=== PATIENT | male | born 1955 | race Caucasian/White ===

== ENCOUNTER 2022-11-20 09:27 | Outpatient (CLI) | payer MEDICARE, SELFPAY ==
[2022-11-20 12:45] LABS: Alanine Aminotransferase 62 U/L (6-50); Albumin Level 4.7 g/dL (3.5-5.1); Alkaline Phosphatase 80 U/L (38-126); Anion Gap 8 mmol/L (8-16); Aspartate Amino Transferase 40 U/L (17-59); Bilirubin,Total 1.1 mg/dL (0.2-1.3); Blood Urea Nitrogen 12 mg/dL (9-20); Calcium 8.8 mg/dL (8.4-10.2); Carbon Dioxide 29 mmol/L (22-30); Chloride 101 mmol/L (98-107); Cholesterol 205 mg/dL (0-200); Estimated Glomerular Filt Rate > 60; Glucose 116 mg/dL (65-110); HDL Direct 31 mg/dL; Potassium 4.4 mmol/L (3.4-5.0); Sodium 138 mmol/L (137-145); Triglycerides 375 mg/dL (<150)
[2022-11-20 13:05] LABS: LDL Cholesterol Direct 104 mg/dL
[2022-11-20 14:07] LABS: Hemoglobin A1C 5.8 % (<5.7)
[2022-11-21 14:45] LABS: Prostate Specific Antigen 0.6 ng/mL (< OR = 4.0)
== END 2022-11-20 09:28 | disposition home or self-care (01) ==
LOC: ANHGOSHLAB 09:33
PROVIDERS: PCP Family Medicine; Visit Provider Family Medicine
DX: E78.5 Hyperlipidemia, unspecified (principal); I10 Essential (primary) hypertension; Z12.5 Encounter for screening for malignant neoplasm of prostate; E11.9 Type 2 diabetes mellitus without complications
CPT/HCPCS: 36415; 80053; 80061; 83036; 84153; G0103

== ENCOUNTER → 2022-11-30 11:22 | Outpatient (CLI) | payer MEDICARE, SELFPAY ==
--- NOTE | ~2022-11-30 | US_ITS ---
EXAMINATION: US venous doppler [facility] DATE: 11/30/2022 11:55 INDICATION: Left lower limb edema. Other specified soft tissue disorders. TECHNIQUE: Grayscale ultrasound images without and with compression and Doppler ultrasound images of the left lower extremity veins were obtained. COMPARISON: None. FINDINGS: The visualized portions of left common femoral vein, profunda (deep) femoral vein, femoral vein, popl iteal vein, peroneal veins, posterior tibial veins, and greater saphenous vein outflow are patent. IMPRESSION: 1. No deep venous thrombosis. Reviewed, dictated and finalized at location A.
== END ==
PROVIDERS: PCP Family Medicine; Visit Provider Family Medicine
DX: M79.89 Other specified soft tissue disorders (principal)
CPT/HCPCS: 93971

== ENCOUNTER 2023-06-05 21:12 | Outpatient (NON) | payer MEDICARE, SELFPAY ==
[2023-06-05 22:04] LABS: Appearance Urine Cloudy (Clear); Bacteria Urine None Seen /hpf; Bilirubin Urine Negative (Negative); Blood Urine Negative (Negative); Color Urine Yellow (Yellow); Glucose Urine UA Negative (Negative); Ketones Urine Negative (Negative); Leukocyte Esterase Ur Negative LEU/UL (NEGATIVE); Nitrate Urine Negative (Negative); Non Pathogenic Casts 0-2; Protein Urine Negative (Negative); RBC Urine 0-2 /hpf (0-2); Specific Grav Ur 1.014 (1.001-1.035); Squamous Epithelial Cell Urine None seen /hpf (Few); WBC Urine 0-5 /hpf (0-3)
[2023-06-05 22:05] LABS: Add Urine Microscopic? YES
== END 2023-06-05 21:13 | disposition home or self-care (01) ==
LOC: ANHGOSHLAB 21:14
PROVIDERS: PCP Family Medicine; Visit Provider Family Medicine
DX: R31.9 Hematuria, unspecified (principal)
CPT/HCPCS: 81001

== ENCOUNTER 2023-12-06 08:50 | Outpatient (CLI) | payer MEDICARE, SELFPAY ==
[2023-12-06 13:52] LABS: Hemoglobin A1C 5.8 % (<5.7)
[2023-12-06 14:03] LABS: Alanine Aminotransferase 41 U/L (6-50); Albumin Level 5.1 g/dL (3.5-5.1); Alkaline Phosphatase 72 U/L (38-126); Anion Gap 9 mmol/L (4-12); Aspartate Amino Transferase 67 U/L (17-59); Bilirubin,Total 0.9 mg/dL (0.2-1.3); Blood Urea Nitrogen 15 mg/dL (9-20); Calcium 9.7 mg/dL (8.4-10.2); Carbon Dioxide 27 mmol/L (22-30); Chloride 103 mmol/L (98-107); Cholesterol 172 mg/dL (0-200); Estimated Glomerular Filt Rate > 60; Glucose 120 mg/dL (65-110); HDL Direct 48 mg/dL; Potassium 4.3 mmol/L (3.4-5.0); Sodium 139 mmol/L (137-145); Triglycerides 128 mg/dL (<150)
[2023-12-06 14:15] LABS: LDL Cholesterol Direct 101 mg/dL
[2023-12-06 14:31] LABS: Prostate Specific Antigen 0.6 ng/mL (< OR = 4.0)
== END 2023-12-06 08:51 | disposition home or self-care (01) ==
LOC: ANHGOSHLAB 08:52
PROVIDERS: PCP Family Medicine; Visit Provider Family Medicine
DX: R73.03 Prediabetes (principal); Z13.220 Encounter for screening for lipoid disorders; Z12.5 Encounter for screening for malignant neoplasm of prostate; Z13.228 Encounter for screening for other metabolic disorders; I10 Essential (primary) hypertension
CPT/HCPCS: 36415; 80053; 80061; 83036; 84153; G0103

== ENCOUNTER 2023-12-26 10:28 | Outpatient (CLI) | payer MEDICARE, SELFPAY ==
--- NOTE | ~2023-12-26 | US_ITS ---
EXAMINATION: US aorta [facility] DATE: 12/26/2023 11:46 INDICATION: Abdominal aortic aneurysm screening. Encounter for screening for cardiovascular disorders . TECHNIQUE: Grayscale, color Doppler, and pulsed Doppler images of the aorta and common iliac arteries were obtained. COMPARISON: None. FINDINGS: The aorta demonstrates a 3.1 cm proximal fusiform aneurysm. The right common iliac artery is normal i n caliber. The left common iliac artery is normal in caliber. IMPRESSION: 1. 3.1 cm fusiform aneurysm of the proximal abdominal aorta. Reviewed, dictated and finalized at location A.
--- NOTE | 2023-12-26 11:37 | ECG_ITS ---
SEE SCANNED COPY FOR CONFIRMED REPORT MTDD
== END 2023-12-26 10:29 | disposition home or self-care (01) ==
LOC: ANHIMG 10:30
PROVIDERS: PCP Family Medicine; Visit Provider Family Medicine
DX: Z13.6 Encounter for screening for cardiovascular disorders (principal); Z00.00 Encounter for general adult medical examination without abnormal findings; I71.40 Abdominal aortic aneurysm, without rupture, unspecified
CPT/HCPCS: 76706; 93005

== ENCOUNTER 2024-12-04 08:37 | Outpatient (CLI) | payer MEDICARE, SELFPAY ==
--- OUTSIDE RECORDS SUMMARY | 2024-12-04 08:52 | XMS_ITS | Clinical Summary ---
Author Organization [facility] [address] [place] [address] Care Team Providers Care Last Trimmer Name Role Phone No, Physician Primary Care Provider [phone] Allergies No known active allergies Medications lisinopriL (PRINIVIL,ZESTRI L) 10 mg tablet Take 10 mg by mouth daily 02/15/2022 Active simvastatin (ZOCOR) 20 mg tablet Take 20 mg by mouth daily 02/14/2022 Active Active Problems Problem Noted Date Diagnosed Date Sensorineural hearing loss (SNHL) of both ears 0 04/12/2022 Assessment & Plan (04/12/2022 10:36 AM CDT): I reviewed his hearing test with him and his . Does have high-frequency hearing loss. I told him that this is probably due to noise exposure. 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 I discussed hearing loss and management of that. If he is having a lot of trouble communicating with people he certainly could consider hearing aids. Impacted cerumen of right ear 04/12/2022 Assessment & Plan (04/12/2022 10:36 AM CDT): I think this is probably contributing to his hearing loss somewhat. His ears are clear now. He thinks he is hearing little better on the right. There is no need for further intervention. Medical History Medical History Date Comments Allergic rhinitis Ear problems HL (hearing loss) Tinnitus Social History Tobacco Use Types Packs/Day Years Used Date Smoking Tobacco: Never Smokeless Tobacco: Never Personal Safety Answer Date Recorded Getting School Help Needed Not on file 10/20 Sex and Gender Information Value Date Recorded Sex Assigned at Not on file Legal Sex Male 9:03 AM CDT Gender Identity Not on file Sexual Orientation Not on file Obstetrics History Last Filed Vital Signs Vital Sign Reading Time Taken Comments Blood Pressure - - Pulse - - Temperature - - Respiratory Rate 18 04/12/2022 10:11 AM CDT Oxygen Saturation - - Inhaled Oxygen Concentration - - Weight 104.3 kg (230 lb) 04/12/2022 10:11 AM CDT Height 182.9 cm (6') 04/12/2022 10:11 AM CDT Body Mass Index 31.19 04/12/2022 10:11 AM CDT Plan of Treatment Health Maintenance Due Date Last Done Comments Colon Cancer Screening-Colonoscopy 1955 Depression Screening 1957 Fall Risk Assessment 1955 Hepatitis C Screening 1955 Prostate Cancer Screening-PSA 1955 Hepatitis B Screening 10/24/1975 Pneumococcal vaccine 65+ (1 of 1 - PCV) 10/24/2007 Abdominal Aortic Aneurysm (A AA) Screen 2022 Well Visit 65+ 2022 Covid-19 Vaccine ( season) 2024, 10/28/2020 Influenza Vaccine (#1) 2024 , 05/13/2020, 06/30/2014 DTaP/Tdap/Td Vaccine (2 - Td or Tdap) 02/15/2026 Zoster Vaccine Completed 09/11/2021, 04/05/2021 Insurance [facility] Care Teams Last Trimmer Relationship Specialty Start Date End Date No, Physician PCP - General 03/31/22
--- OUTSIDE RECORDS SUMMARY | 2024-12-04 08:52 | XMS_ITS | Referral Summary ---
Author Organization [facility] [address] [place] [address] Care Team Providers Care Statistical Methods Teacher Name Role Phone No, Physician Primary Care Provider [phone] Allergies No known active allergies Medications lisinopriL [...] There is no need for further intervention. Social History Tobacco Use Types Packs/Day Years Used Date Smoking Tobacco: Never Smokeless Tobacco: Never Personal Safety Answer Date Recorded Getting School Help Needed Not on file 10/20 Sex and Gender Information Value Date Recorded Sex Assigned at Not on file Legal Sex Male 9:03 AM CDT Gender Identity Not on file Sexual Orientation Not on file Last Filed Vital Signs Vital Sign Reading [...] 04/12/2022 10:11 AM CDT Plan of Treatment Not on file Insurance [facility] Care Teams Statistical Methods Teacher Relationship Specialty Start Date End Date No, Physician PCP - General 03/31/22
[2024-12-04 12:57] LABS: Basophils Percent Auto 0.4 % (0.2-1.2); Eosinophils Absolute Auto 0.1 K/mm3 (0-0.3); Eosinophils Percent Auto 1.4 % (0-4.4); Hemoglobin 14.6 g/dL (14.0-18.0); Immature Granulocyte Absolute 0.01 K/mm3 (0.00-0.031); Immature Granulocyte Percent A 0.2 % (0-0.5); Lymphocytes Absolute Auto 2.14 K/mm3 (0.9-3.2); Lymphocytes Percent Auto 44.1 % (18.3-44.2); Mean Corpuscular HGB Conc 33.2 g/dl (32-36); Mean Corpuscular Volume 93.4 fl (80-100); Mean Platelet Volume 9.4 fl (7.4-10.4); Monocytes Absolute Auto 0.5 K/mm3 (0.1-0.6); Monocytes Percent Auto 10.3 % (2.6-8.5); Neutrophils Absolute Auto 2.1 K/mm3 (1.3-6.7); Neutrophils Percent Auto 43.6 % (45.5-73.1); Platelet Count Result 243 k/mm3 (150-375); Red Blood Count 4.71 M/mm3 (4.6-6.20); Red Cell Distribution Width 12.6 % (11.5-14.5); White Blood Count 4.9 K/mm3 (4.5-10.0)
[2024-12-04 13:05] LABS: Alanine Aminotransferase 43 U/L (6-50); Albumin Level 4.7 g/dL (3.5-5.1); Alkaline Phosphatase 72 U/L (38-126); Anion Gap 9 mmol/L (4-12); Aspartate Amino Transferase 44 U/L (17-59); Blood Urea Nitrogen 16 mg/dL (9-20); Calcium 9.1 mg/dL (8.4-10.2); Carbon Dioxide 27 mmol/L (22-30); Chloride 103 mmol/L (98-107); Cholesterol 171 mg/dL (0-200); Estimated Glomerular Filt Rate > 60; Glucose 106 mg/dL (65-110); HDL Direct 38 mg/dL; Potassium 4.6 mmol/L (3.4-5.0); Sodium 139 mmol/L (137-145); Triglycerides 210 mg/dL (<150)
[2024-12-04 13:15] LABS: LDL Cholesterol Direct 88 mg/dL
[2024-12-04 13:30] LABS: Hemoglobin A1C 5.8 % (<5.7)
[2024-12-04 13:35] LABS: Prostate Specific Antigen 0.7 ng/mL (< OR = 4.0)
[2024-12-09 19:18] LABS: Apolipoprotein B 95 mg/dL
== END 2024-12-04 08:38 | disposition home or self-care (01) ==
LOC: ANHGOSHLAB 08:38
PROVIDERS: PCP Internal Medicine; Visit Provider Internal Medicine
DX: E78.2 Mixed hyperlipidemia (principal); R73.03 Prediabetes; Z12.5 Encounter for screening for malignant neoplasm of prostate; I10 Essential (primary) hypertension
CPT/HCPCS: 36415; 80053; 80061; 82172; 83036; 84153; 85025; G0103

== ENCOUNTER 2025-07-03 08:11 | Outpatient (CLI) | payer MEDICARE, SELFPAY ==
--- NOTE | ~2025-07-03 | US_ITS ---
PROCEDURE(S): US aorta INDICATION(S): Follow-up COMPARISON(S): 2023 TECHNIQUE: Grayscale, color Doppler, and spectral analysis. FINDINGS: The proximal aorta cannot be seen because of overlying bowel gas. This was the area of previously visualized small aneurysm. The portions of the aorta seen, the mid and distal aorta, show no aneurysm. There is no aneurysm in the common iliac arteries. IMPRESSION: The proximal aorta is not seen because of overlying bowel gas. Consider CT if further evaluation is clinically necessary. Reviewed, dictated and finalized at location A. ERHOUSE MECHANIC IMPRESSION: The proximal aorta is not seen because of overlying bowel gas. Cons ider CT if further evaluation is clinically necessary.
--- OUTSIDE RECORDS SUMMARY | 2025-07-03 08:18 | XMS_ITS | Clinical Summary ---
Author Organization [facility] [address] Address [address] [place] [address] Care Team Providers Care Insole Stiffener Name Role Phone No, Physician Primary Care Provider [phone] Allergies No known active allergies Medications lisinopriL [...] Plan of Treatment Not on file Insurance [facility] Care Teams Insole Stiffener Relationship Specialty Start Date End Date No, Physician PCP - General 03/31/22
== END 2025-07-03 08:12 | disposition home or self-care (01) ==
PROVIDERS: PCP Internal Medicine; Visit Provider Internal Medicine
DX: I71.40 Abdominal aortic aneurysm, without rupture, unspecified (principal)
CPT/HCPCS: 76775

== ENCOUNTER 2025-07-09 09:09 | Outpatient (CLI) | payer MEDICARE, SELFPAY ==
--- NOTE | ~2025-07-09 | US_ITS ---
EXAM/PROCEDURE: US aorta HISTORY: I71.40 - Abdominal aortic aneurysm, without rupture, unsp... COMPARISON: July 03, 2025 TECHNIQUE: Aorta screening ultrasound FINDINGS: The proximal abdominal aorta is completely obscured due to adjacent intestinal gas. The mid aorta measures 2.2 x 2.2 cm The distal aorta measures 1.9 x 1.8 cm Right and left common iliac arteries measure 1.36 and 1.21 cm Visualized osseous structures are patent. IMPRESSION: Limited examination with nonvisualization of the proximal abdominal aorta. The mid and distal aorta are normal in size. Comment: If visualization of the proximal abdominal aorta is needed or desired, consider correlation with CT exam. Reviewed, dictated and finalized at location A. RER
--- OUTSIDE RECORDS SUMMARY | 2025-07-09 10:14 | XMS_ITS | Clinical Summary ---
Author Organization [facility] [address] [place] [address] Care Team Providers Care Senior Web Developer Name Role Phone No, Physician Primary Care Provider [phone] Allergies No known active allergies Medications lisinopriL [...] Plan of Treatment Not on file [facility] Address: [address] [address] Care Teams Senior Web Developer Relationship Specialty Start Date End Date No, Physician PCP - General 03/31/22
== END 2025-07-09 09:10 | disposition home or self-care (01) ==
PROVIDERS: PCP Internal Medicine; Visit Provider Internal Medicine
DX: I71.40 Abdominal aortic aneurysm, without rupture, unspecified (principal)
CPT/HCPCS: 76775

== ENCOUNTER 2025-07-29 07:33 | Outpatient (CLI) | payer MEDICARE, SELFPAY ==
--- NOTE | ~2025-07-29 | CT_ITS ---
EXAMINATION: CTA abdomen pelvis DATE: 07/29/2025 08:08 INDICATION: Abdominal aortic aneurysm without rupture TECHNIQUE: Computed tomographic angiography (CTA) of the abdomen and pelvis was performed with 100 mL Omnipaque-350 intravenous contrast. Additional 3D reconstructions utilizing rotating maximum intensity projection (MIP) were performed. Automated exposure control and iterative reconstruction technique were employed. The dose-length product was 701.32 mGy-cm. COMPARISON: None FINDINGS: 5 mm right lower lobe nodule.. Visualized inferior heart appears normal. No pericardial or pleural effusion. Small sliding-type hiatal hernia. Liver, gallbladder, spleen, pancreas, bilateral adrenal glands and left kidney are normal. 1.2 cm right renal cyst. Bladder is normal. Prostatomegaly measuring 4.7 x 4.4 cm. Bowels including the appendix are normal. There is calcified atherosclerosis of the normal caliber aorta and many of the other arteries. No aneurysm, dissection or hemodynamically significant stenosis. No free intraperitoneal gas or fluid. No pathologically enlarged abdominal or pelvic lymphadenopathy. Mild lumbar and moderate lower thoracic spondylosis with bridging osteophytes at multiple levels in the lower thoracic spine consistent with diffuse idiopathic skeletal hyperostosis (DISH). IMPRESSION: 1. Scattered atherosclerotic plaque along the normal caliber abdominal aorta with no aneurysm, dissection or hematoma significant stenosis. Reviewed, dictated and finalized at location A. [employer] FORMER IMPRESSION: 1. Scattered atherosclerotic plaque along the normal caliber abdominal aorta wi th no aneurysm, dissection or hematoma significant stenosis.
[2025-07-29 09:18] LABS: Estimated Glomerular Filt Rate > 60
== END 2025-07-29 07:34 | disposition home or self-care (01) ==
PROVIDERS: PCP Internal Medicine; Visit Provider Internal Medicine
DX: I71.40 Abdominal aortic aneurysm, without rupture, unspecified (principal)
CPT/HCPCS: 74174; Q9967